=== PATIENT | female | born 1990 | race Caucasian/White ===

== ENCOUNTER → 2017-09-09 | Outpatient (CLI) | payer OTHER ==
[~2017-09-09] VITALS: Ht 167.6 cm; Wt 68.0 kg
[~2017-09-09] MED LIST: BACTROBAN OINT22 GM TP; BENADRYL25 MG PO; FLONASE16 GM NASAL; INTEGRA PLUS C1 EACH PO; MEDROL4 MG PO; SEPTRA DS TABLE1 TAB PO; ZYRTEC10 MG PO
== END | disposition home or self-care (01) ==
LOC: OFIC 805 08:30
DX: J34.3 Hypertrophy of nasal turbinates (principal); J32.8 Other chronic sinusitis

== ENCOUNTER 2019-07-02 11:34 | Emergency (ER) | payer OTHER ==
[~2019-07-02] VITALS: Ht 152.4 cm; Wt 47.6 kg
== END 2019-07-02 13:33 | disposition home or self-care (01) ==
LOC: ER 11:34
DX: S80.871A Other superficial bite, right lower leg, initial encounter (principal); L08.9 Local infection of the skin and subcutaneous tissue, unspecified; W57.XXXA Bitten or stung by nonvenomous insect and other nonvenomous arthropods, initial encounter; Y93.89 Activity, other specified; Y92.89 Other specified places as the place of occurrence of the external cause; Y99.8 Other external cause status

== ENCOUNTER 2019-11-06 20:54 | Emergency (ER) | payer OTHER ==
[~2019-11-06] VITALS: Ht 167.6 cm; Wt 52.6 kg
== END 2019-11-06 23:06 | disposition home or self-care (01) ==
LOC: ER 20:54
DX: J06.9 Acute upper respiratory infection, unspecified (principal)

== ENCOUNTER 2020-01-08 03:18 | Emergency (ER) | payer OTHER ==
[~2020-01-08] VITALS: Ht 167.6 cm; Wt 52.6 kg
== END 2020-01-08 06:22 | disposition home or self-care (01) ==
LOC: ER 03:18
DX: F19.20 Other psychoactive substance dependence, uncomplicated (principal); R63.1 Polydipsia

== ENCOUNTER → 2020-06-18 | Outpatient (CLI) | payer OTHER | END | disposition home or self-care (01) | LOC: RAD 11:05 | PROVIDERS: ATTEND Orthopaedic Surgery | DX: M25.571 Pain in right ankle and joints of right foot (principal) ==

== ENCOUNTER 2020-09-16 21:43 | Emergency (ER) | payer OTHER ==
[~2020-09-16] VITALS: Ht 167.6 cm; Wt 72.6 kg
== END 2020-09-16 22:44 | disposition home or self-care (01) ==
LOC: ER 21:43
DX: H66.91 Otitis media, unspecified, right ear (principal)